=== PATIENT | female | born 1950 | race Caucasian/White ===

== ENCOUNTER → 2021-10-30 09:38 | Outpatient (BNVA) | payer MEDICARE, SELFPAY | PROVIDERS: PCP Family Medicine; Visit Provider Internal Medicine Rheumatology | DX: R76.8 Other specified abnormal immunological findings in serum (principal); R06.2 Wheezing; Z79.899 Other long term (current) drug therapy; Z11.59 Encounter for screening for other viral diseases; Z11.1 Encounter for screening for respiratory tuberculosis; Z71.85 Encounter for immunization safety counseling; Z85.43 Personal history of malignant neoplasm of ovary; Z92.21 Personal history of antineoplastic chemotherapy | CPT/HCPCS: 99204 ==

== ENCOUNTER 2021-10-30 10:52 | Outpatient (CLI) | payer MEDICARE, SELFPAY ==
--- NOTE | 2021-10-30 11:03 | XR_ITS ---
WS: [id number] PROCEDURE: XR chest 2V* [id number] CLINICAL INFORMATION: Z79.899 - Other prison (current) drug therapy COMPARISON: None. FINDINGS: Heart: Normal cardiac silhouette. Tortuous thoracic aorta. Lungs: Moderate chronic emphysematous changes. No consolidation or pleural fluid. No acute pulmonary infiltrates. Calcified breast implants.] Bones: Thoracic curve convex right. Surgical clips upper abdomen XR/XR chest 2V* [id number] IMPRESSION: 1. Moderate chronic emphysematous changes. No acute pulmonary infiltrates. 2. Moderate thoracic curve convex right. 3. No acute chest findings.
[2021-10-30 11:41] LABS: Basophils # 0.1 10^3/uL (0.0-0.1); Basophils % 0.8 %; Eosinophils # 0.3 10^3/uL (0.0-0.8); Eosinophils % 3.1 %; Hematocrit 42.1 % (37.0-47.0); Hemoglobin 13.4 g/dL (11.5-15.3); Lymphocytes # 2.3 10^3/uL (0.8-4.8); Lymphocytes % 23.9 %; Mean Corpuscular HGB Conc 31.8 g/dL (30.0-36.0); Mean Corpuscular Hemoglobin 28.8 pg (28.0-34.0); Mean Corpuscular Volume 90.3 fl (81-99); Mean Platelet Volume 10.2 fL (7.4-10.4); Monocytes # 0.5 10^3/uL (0.2-0.9); Monocytes % 5.2 %; Neutrophils # 6.35 10^3/uL (1.8-7.7); Neutrophils % 66.8 %; Nucleated Red Blood Cells % 0 %; Platelet Count 304 10^3/cmm (130-400); Red Blood Count 4.66 10^6/uL (4.1-5.3); Red Cell Distribution Width 14.2 % (12.1-15.1); White Blood Count 9.5 10^3/uL (4.0-10.0)
[2021-10-30 12:07] LABS: Erythrocyte Sedimentation Rate 6 mm/hr (0-15)
[2021-10-30 12:08] LABS: Rheumatoid Factor < 10.0 IU/mL (0-14)
[2021-10-30 12:20] LABS: 25 Hydroxy Vitamin D 60 ng/mL (30-100); Alanine Aminotransferase 15 U/L (0-33); Albumin Level 4.3 g/dL (3.5-5.2); Alkaline Phosphatase 105 IU/L (35-105); Aspartate Amino Transferase 18 U/L (0-32); Globulin 2.7 g/dL (1.3-4.6); Glomerular Filtration Rate 98.8 mL/min (90-130); Total Bilirubin 0.4 mg/dL (0.15-1.2)
[2021-10-30 13:30] LABS: Free T4 Free Thyroxine 1.28 ng/dL (0.82-1.77)
[2021-10-30 13:38] LABS: Hepatitis B Core AB, Total Non-Reactive (Nonreactive); Hepatitis B Surface Antigen Non-Reactive (Nonreactive); Hepatitis C Virus Antibody Non-Reactive (Nonreactive)
[2021-10-31 13:53] LABS: Cyclic Citrullinated Peptide <16 UNITS
[2021-11-01 11:33] LABS: Quantiferon Mitogen >10.00 IU/mL; Quantiferon Nil 0.01 IU/mL; Quantiferon TB Gold NEGATIVE (NEGATIVE)
== END 2021-10-30 10:53 | disposition home or self-care (01) ==
PROVIDERS: PCP Family Medicine; Visit Provider Internal Medicine Rheumatology
DX: Z79.899 Other long term (current) drug therapy (principal); M34.9 Systemic sclerosis, unspecified; Z11.59 Encounter for screening for other viral diseases
CPT/HCPCS: 36415; 71046; 80076; 82306; 82565; 84439; 84443; 85025; 85651; 86140; 86200; 86431; 86480; 86704; 86803; 87340

== ENCOUNTER → 2022-05-02 09:28 | Outpatient (BNVA) | payer MEDICARE, SELFPAY | PROVIDERS: PCP Family Medicine; Visit Provider Internal Medicine Rheumatology | DX: R76.8 Other specified abnormal immunological findings in serum (principal); M19.90 Unspecified osteoarthritis, unspecified site; Z79.899 Other long term (current) drug therapy; R06.2 Wheezing; B00.9 Herpesviral infection, unspecified; Z92.21 Personal history of antineoplastic chemotherapy; Z85.43 Personal history of malignant neoplasm of ovary; Z71.85 Encounter for immunization safety counseling | CPT/HCPCS: 36415; 80076; 82565; 85025; 86140; 99214 ==